=== PATIENT | female | born 1965 | race Caucasian/White ===

== ENCOUNTER 2016-11-22 13:54 | Emergency (ER) | payer MEDICAID, OTHER ==
[2016-11-22 14:15] VITALS: BP 124/85
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
--- NOTE | 2016-11-22 16:50 | XRAY Preliminary Report ---
Exam: XR Knee 3 View LT IMPRESSION: 1. Small to moderate joint effusion. 2. No acute fracture. 3. Degenerative disease of the lateral greater than medial compartment of mild severity. [facility] SITE ID: [id number]
--- NOTE | 2016-11-22 16:52 | XRAY Preliminary Report ---
Exam: XR Foot 3 View RT IMPRESSION: Previous first toe surgery and degenerative disease of the first metatarsal-phalangeal ledy int. [facility] SITE ID: [id number]
--- NOTE | 2016-11-22 16:53 | XRAY Report ---
EXAM: LEFT KNEE RADIOGRAPHY EXAM DATE: 11/22/2016 03:22 PM. CLINICAL HISTORY: Left knee pain. COMPARISON: None. TECHNIQUE: 3 views. FINDINGS: Bones: There is mild sclerosis and spurring of the lateral tibial plateau and the medial and lateral femoral condyle. No evidence of cortical step-off or acute fracture. Joints: There is a small to moderate suprapatellar joint effusion. Soft Tissues: Normal. No soft tissue swelling. IMPRESSION: 1. Small to moderate joint effusion. 2. No acute fracture. 3. Degenerative disease of the lateral greater than medial compartment of mild severity. [facility] Referring Provider Line: [phone] SITE ID: [id number]
--- NOTE | 2016-11-22 16:55 | XRAY Report ---
EXAM: RIGHT FOOT RADIOGRAPHY EXAM DATE: 11/22/2016 03:21 PM. CLINICAL HISTORY: Right foot injury. COMPARISON: None. TECHNIQUE: 3 views. FINDINGS: Bones: There are findings of osteotomy and surgery of the distal first metatarsal and first proximal phalanx. No acute fracture. Joints: There is joint space narrowing of the first metatarsal-phalangeal joint. No subluxation or di slocation. Soft Tissues: There is linear soft tissue calcification over the dorsal midfoot. IMPRESSION: Previous first toe surgery and degenerative disease of the first metatarsal-phalangeal ledy int. [facility] Referring Provider Line: [phone] SITE ID: [id number]
== END 2016-11-22 17:56 | disposition home or self-care (01) ==
LOC: ED 13:54
DX: S93.601A Unspecified sprain of right foot, initial encounter (principal); M25.562 Pain in left knee; W22.09XA Striking against other stationary object, initial encounter; Z98.890 Other specified postprocedural states; F17.200 Nicotine dependence, unspecified, uncomplicated
CPT/HCPCS: 99281; 99283

== ENCOUNTER 2017-01-25 12:18 | Emergency (ER) | payer MEDICAID ==
[2017-01-25] MEDS ORDERED: CYCLOBENZAPRINE 10 MG TABLET PO STA (13:37)
--- NOTE | 2017-01-25 13:39 | ED Physician Documentation ---
PD HPI Fall - Stated complaint Stated Complaint: L KNEE INJURY,FALL - Chief complaint Chief Complaint: Back Pain - History obtained from History obtained from: Patient - History of Present Illness Mechanism of injury: Tripped (states her knee gave out on her, states this is a chronic issue) Fall distance: Standing position Where injury occurred: Home Timing - onset: Last night Injury(ies) location: Face (R zygoma), Neck, Back, Left Lower Extremity (knee) Pain level max: 7 Pain level now: 7 Quality of pain: Pain, Aching, Dull Associated symptoms: No: LOC, AMS, Amnesia, Seizures, Ear drainage, Nasal drainage, Neck pain, Weakness, Paresthesias, Dyspnea, Nausea / vomiting, Hematemesis, Abdominal distension Symptoms improve with: Rest Worsens with: Movement, Palpation Contributing factors: No: Anticoagulated, Intoxicated Recently seen: Not recently seen Review of Systems Constitutional: denies: Fever, Chills Cardiac: denies: Chest pain / pressure Respiratory: denies: Cough Skin: denies: Rash Musculoskeletal: denies: Neck pain, Back pain Neurologic: denies: Focal weakness, Numbness, Headache PD PAST MEDICAL HISTORY - Past Medical History Past Medical History: Yes Endocrine/Autoimmune: None Musculoskeletal: Other (knee pain) - Past Surgical History Past Surgical History: Yes General: Appendectomy 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 - 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 Medications Home Medications: Ambulatory Orders Medication Instructions Recorded Confirmed Cyclobenzaprine [Flexeril] 10 mg PO TID PRN #20 tablet 01/25/17 Meloxicam [Mobic] 7.5 mg PO BID PRN #20 tablet 01/25/17 - Allergies Allergies/Adverse Reactions: Allergies Allergy/AdvReac Type Severity Reaction Status Date / Time codeine Allergy Unknown Verified 11/22/16 14:11 - Social History Does the pt smoke?: Yes Smoking Status: Current every day smoker Does the pt drink ETOH?: Yes Does the pt have substance abuse?: No - Immunizations Immunizations are current?: Yes - POLST Patient has POLST: No PD ED PE NORMAL - Vitals Vital signs reviewed: Yes - General General: Alert and oriented X 3, No acute distress, Well developed/nourished - HEENT HEENT: Atraumatic, PERRL, Ears normal, Moist mucous membranes, Pharynx benign - Neck Neck: Supple, no meningeal sign, No bony TTP - Cardiac Cardiac: RRR - Respiratory Respiratory: No respiratory distress, Clear bilaterally - Abdomen Abdomen: Soft, Non tender - Back Back: No spinal TTP - Extremities Extremities: Other (L knee - ACL, MCL, PCL, LCL intact. Negative Triny and Delio test. No joint effusion) - Neuro Neuro: Alert and oriented X 3 - Psych Psych: Normal mood, Normal affect Results - Vitals Vitals: Vital Signs - 24 hr 01/25/17 01/25/17 12:24 13:46 Temperature 36.3 C L 36.6 C Heart Rate 89 81 Respiratory 21 Rate Blood Pressure 130/84 H 137/70 H O2 Saturation 100 99 Oxygen O2 Source Room air PD MEDICAL DECISION MAKING - ED course Complexity details: reviewed old records, considered differential, d/w patient ED course: Patient is a 51-year-old female who presents to the emergency department after her left knee "gave out on her". This is a chronic ongoing condition for her for which she does have a brace. She may benefit from a more supportive knee brace after seeing her primary care provider and/or orthopedics. She also states that her doctor is no longer prescribing her Vicodin for her, I do not feel that narcotics are warranted for this condition at this time. Patient is comfortable with this plan. Will prescribe muscle relaxants for her disease appear to be soft tissue injuries. No bony tenderness over the neck or back. Patient is ambulating well in the emergency department. Patient counseled regarding signs and symptoms for which I believe and urgent re-evaluation would be necessary. Patient with good understanding of and agreement to plan and is comfortable going home at this time This document was made in part using voice recognition software. While efforts are made to proofread this document, sound alike and grammatical errors may occur. Departure - Departure Disposition: 01 Home, Self Care Clinical Impression: Back strain Qualifiers: Encounter type: initial encounter Qualified Code(s): S39.012A - Strain of muscle, fascia and tendon of lower back, initial encounter Knee strain Qualifiers: Encounter type: initial encounter Laterality: left Qualified Code(s): S86.912A - Strain of unspecified muscle(s) and tendon(s) at lower leg level, left leg, initial encounter Condition: Good Instructions: ED Sprain Strain Lumbar, ED Sprain Knee Follow-Up: your,doctor in 1 week [Other] Prescriptions: Cyclobenzaprine [Flexeril] 10 mg PO TID PRN #20 tablet PRN Reason: Spasms Meloxicam [Mobic] 7.5 mg PO BID PRN #20 tablet PRN Reason: pain Comments: Return if you worsen. This should improve over the next few days. You should follow up with your doctor/orthopedics about a brace for your knee. Discharge Date/Time: 01/25/17 13:48
[2017-01-25 13:47] VITALS: BP 137/70
[2017-01-25] MEDS ORDERED: CYCLOBENZAPRINE 10 MG TABLET PO ONE (13:48)
== END 2017-01-25 13:48 | disposition home or self-care (01) ==
LOC: ED 12:18
DX: S86.912A Strain of unspecified muscle(s) and tendon(s) at lower leg level, left leg, initial encounter (principal); S39.012A Strain of muscle, fascia and tendon of lower back, initial encounter; W01.0XXA Fall on same level from slipping, tripping and stumbling without subsequent striking against object, initial encounter; Y92.019 Unspecified place in single-family (private) house as the place of occurrence of the external cause; F17.200 Nicotine dependence, unspecified, uncomplicated
CPT/HCPCS: 99283; A9270

== ENCOUNTER 2017-10-03 14:35 | Outpatient (CLI) | payer MEDICAID ==
[2017-10-03 18:31] LABS: BASOPHILS # (AUTO) 0.1 10^3/uL (0.0-0.1); BASOPHILS % (AUTO) 0.9 %; EOSINOPHILS # (AUTO) 0.2 10^3/uL (0.0-0.7); EOSINOPHILS % (AUTO) 2.1 %; HGB - HEMOGLOBIN 14.2 g/dL (12.0-16.0); LYMPHOCYTES # (AUTO) 1.9 10^3/uL (1.5-3.5); LYMPHOCYTES % (AUTO) 21.5 %; MEAN CORPUSCULAR HEMOGLOBIN 32.6 pg (27.0-31.0); MEAN CORPUSCULAR HGB CONC 33.9 g/dL (32.0-36.0); MEAN CORPUSCULAR VOLUME 96.2 fL (81.0-99.0); MONOCYTES # (AUTO) 0.7 10^3/uL (0.0-1.0); MONOCYTES % (AUTO) 8.2 %; NEUTROPHILS # (AUTO) 5.9 10^3/uL (1.5-6.6); NEUTROPHILS % (AUTO) 67.3 %; PLT - PLATELET COUNT 295 10^3/uL (130-450); RED BLOOD COUNT 4.35 10^6/uL (4.20-5.40); RED CELL DISTRIBUTION WIDTH 12.6 % (12.0-15.0); WHITE BLOOD COUNT 8.8 x10^3/uL (4.8-10.8)
[2017-10-03 18:57] LABS: ALBUMIN 4.3 g/dL (3.2-5.5); ALBUMIN/GLOBULIN RATIO 1.3 (1.0-2.2); BILIRUBIN,TOTAL 0.6 mg/dL (0.2-1.0); CALCIUM 9.2 mg/dL (8.5-10.3); CREATININE 0.6 mg/dL (0.4-1.0); TOTAL PROTEIN 7.5 g/dL (6.7-8.2)
[2017-10-03 19:09] LABS: THYROID STIMULATING HORMONE 0.82 uIU/mL (0.34-5.60)
[2017-10-03 19:20] LABS: FOLATE 18.51 ng/mL (5.90 - >24.8)
== END 2017-10-03 23:59 | disposition home or self-care (01) ==
LOC: LAB.N 14:35
PROVIDERS: ATTEND Nurse Practitioner
DX: R53.83 Other fatigue (principal); E55.9 Vitamin D deficiency, unspecified
CPT/HCPCS: 36415; 80053; 82306; 82607; 82746; 84443; 85025

== ENCOUNTER 2017-11-19 15:48 | Outpatient (CLI) | payer MEDICAID ==
[2017-11-19 19:01] LABS: CALCIUM 9.4 mg/dL (8.5-10.3); CREATININE 0.6 mg/dL (0.4-1.0)
== END 2017-11-19 15:49 | disposition home or self-care (01) ==
LOC: LAB.N 15:48
PROVIDERS: ATTEND Nurse Practitioner
DX: E87.6 Hypokalemia (principal)
CPT/HCPCS: 36415; 80048

== ENCOUNTER 2017-12-01 15:55 | Outpatient (CLI) | payer MEDICAID | END 2017-12-01 15:56 | disposition home or self-care (01) | LOC: DI.N 15:55 | PROVIDERS: ATTEND Nurse Practitioner | DX: Z12.31 Encounter for screening mammogram for malignant neoplasm of breast (principal) | CPT/HCPCS: 77067 ==

== ENCOUNTER 2018-05-27 16:13 | Outpatient (CLI) | payer MEDICAID | END 2018-05-27 23:59 | disposition home or self-care (01) | LOC: RT.N 16:13 | PROVIDERS: ATTEND Nurse Practitioner | DX: R06.00 Dyspnea, unspecified (principal); R00.2 Palpitations | CPT/HCPCS: 93005 ==

== ENCOUNTER 2018-06-03 08:00 | Outpatient (CLI) | payer MEDICAID ==
[2018-06-03 19:12] LABS: BASOPHILS # (AUTO) 0.1 10^3/uL (0.0-0.1); EOSINOPHILS # (AUTO) 0.1 10^3/uL (0.0-0.7); EOSINOPHILS % (AUTO) 1.7 %; HGB - HEMOGLOBIN 15.1 g/dL (12.0-16.0); LYMPHOCYTES # (AUTO) 1.8 10^3/uL (1.5-3.5); LYMPHOCYTES % (AUTO) 23.2 %; MEAN CORPUSCULAR HEMOGLOBIN 32.5 pg (27.0-31.0); MEAN CORPUSCULAR HGB CONC 33.4 g/dL (32.0-36.0); MEAN CORPUSCULAR VOLUME 97.3 fL (81.0-99.0); MEAN PLATELET VOLUME 9.3 fL (7.9-10.8); MONOCYTES # (AUTO) 0.7 10^3/uL (0.0-1.0); MONOCYTES % (AUTO) 9.5 %; NEUTROPHILS # (AUTO) 4.9 10^3/uL (1.5-6.6); NEUTROPHILS % (AUTO) 64.6 %; PLT - PLATELET COUNT 251 10^3/uL (130-450); RED BLOOD COUNT 4.64 10^6/uL (4.20-5.40); RED CELL DISTRIBUTION WIDTH 12.5 % (12.0-15.0); WHITE BLOOD COUNT 7.6 x10^3/uL (4.8-10.8)
[2018-06-03 19:24] LABS: ALBUMIN 4.5 g/dL (3.2-5.5); ALBUMIN/GLOBULIN RATIO 1.4 (1.0-2.2); BILIRUBIN,TOTAL 0.7 mg/dL (0.2-1.0); CALCIUM 9.7 mg/dL (8.5-10.3); CREATININE 0.5 mg/dL (0.4-1.0); TOTAL PROTEIN 7.8 g/dL (6.7-8.2)
== END 2018-06-03 23:59 | disposition home or self-care (01) ==
LOC: LAB.N 08:00
PROVIDERS: ATTEND Nurse Practitioner
DX: R06.00 Dyspnea, unspecified (principal)
CPT/HCPCS: 36415; 80053; 85025

== ENCOUNTER 2018-06-14 13:22 | Outpatient (CLI) | payer MEDICAID | END 2018-06-14 13:23 | disposition home or self-care (01) | LOC: RT 13:22 | PROVIDERS: ATTEND Nurse Practitioner | DX: R06.09 Other forms of dyspnea (principal) | CPT/HCPCS: 94010; 94729 ==

== ENCOUNTER 2018-07-14 14:57 | Outpatient (CLI) | payer MEDICAID ==
--- NOTE | 2018-07-15 11:27 | CT Report ---
Reason: PRIMARY OSTEOARTHRITIS, RIGHT ANKLE AND FOOT Procedure Date: 07/14/2018 Accession Number: [id number] / [id number] Procedure: CT - LOWER EXTREMITY WO - RT CPT Code: FULL RESULT: EXAM: RIGHT FOOT CT WITHOUT CONTRAST EXAM DATE: 07/14/2018 03:16 PM. CLINICAL HISTORY: Right ankle and foot osteoarthritis. Fracture nonunion. COMPARISON: 11/22/2016 radiograph. TECHNIQUE: Thin-section axial images were acquired of the foot without contrast. Post-processing: Coronal and sagittal reformats. Other: None. In accordance with CT protocol optimization, one or more of the following dose reduction techniques were utilized for this exam: automated exposure control, adjustment of mA and/or KV based on patient size, or use of iterative reconstructive technique. FINDINGS: Bones: No fractures. Mild osteophyte formation is at the first metatarsal phalangeal joint and is accompanied by joint space narrowing. The patient has had plate and screw fixation at the first tarsometatarsal joint. The plate is broken just distal to the second screw. However, there is bony union at the fusion site. Although this is a nonweightbearing examination, the patient likely has hallux valgus and metatarsus primus varus. A bunionectomy has been performed. The patient has joint space narrowing, mild osteophyte formation, and periarticular cyst formation at the second and third tarsometatarsal joints. Musculature: Normal. No fatty atrophy. Other: No tendon entrapment. No soft tissue swelling. IMPRESSION: 1. 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 2. Prior bunion surgery. 3. Mild osteoarthritis of the first metatarsophalangeal and second and third tarsometatarsal joints. [facility]
== END 2018-07-14 14:58 | disposition home or self-care (01) ==
LOC: DI 14:57
PROVIDERS: ATTEND Podiatrist Foot & Ankle Surgery
DX: S92.901K Unspecified fracture of right foot, subsequent encounter for fracture with nonunion (principal); M19.071 Primary osteoarthritis, right ankle and foot; T85.848D Pain due to other internal prosthetic devices, implants and grafts, subsequent encounter

== ENCOUNTER 2019-02-14 14:54 | Emergency (ER) | payer MEDICAID ==
[2019-02-14 15:06] VITALS: BP 114/83
--- NOTE | 2019-02-14 15:43 | XRAY Report ---
Reason: cough/ chest congestion Procedure Date: 02/14/2019 Accession Number: [id number] / [id number] Procedure: XR - Chest 2 View X-Ray CPT Code: 61623 Final Report FULL RESULT: EXAM: CHEST RADIOGRAPHY EXAM DATE: 02/14/2019 03:14 PM. CLINICAL HISTORY: Cough/ chest congestion. COMPARISON: None available. TECHNIQUE: 2 views. FINDINGS: Heart size is normal. Calcified plaque in the thoracic aorta. No consolidation, pleural effusion, or pneumothorax. IMPRESSION: No acute cardiopulmonary findings. [facility]
[2019-02-14] MEDS ORDERED: BENZONATATE 100 MG CAPSULE PO STA (16:09)
[2019-02-14] MEDS ORDERED: predniSONE 20 MG TABLET PO STA (16:09)
--- NOTE | 2019-02-14 16:15 | ED Physician Documentation ---
PD HPI URI - Stated complaint Stated Complaint: CONGESTED, SHORT OF BREATH, COUGH - Chief complaint Chief Complaint: Resp - History obtained from History obtained from: Patient, Family - History of Present Illness Timing - onset: How many days ago (9) Timing duration: Days (9) Timing details: Gradual onset Pain level max: 5 Pain level now: 4 Associated symptoms: Nasal congestion, Rhinorrhea, Dry cough, Dyspnea (wheezing). 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 - Present Medications Home Medications: Ambulatory Orders Medication Instructions Recorded Confirmed Cyclobenzaprine [Flexeril] 10 mg PO TID PRN #20 tablet 01/25/17 Meloxicam [Mobic] 7.5 mg PO BID PRN #20 tablet 01/25/17 Albuterol Sulf [Ventolin Hfa 1 - 2 puffs INH Q4HR PRN #1 inhaler 02/14/19 Inhaler] Benzonatate [Tessalon Perle] 100 - 200 mg PO TID PRN #30 capsule 02/14/19 Meloxicam [Mobic] 15 mg PO DAILY PRN #20 tablet 02/14/19 predniSONE [Deltasone] 10 mg PO [id number] #42 tab 02/14/19 - Allergies Allergies/Adverse Reactions: Allergies Allergy/AdvReac Type Severity Reaction Status Date / Time codeine Allergy Unknown Verified 11/22/16 14:11 - Social History Does the pt smoke?: Yes Smoking Status: Current every day smoker Does the pt drink ETOH?: Yes Does the pt have substance abuse?: No - Immunizations Immunizations are current?: Yes - POLST Patient has POLST: No PD ED PE NORMAL - Vitals Vital signs reviewed: Yes - General General: Alert and oriented X 3, No acute distress, Well developed/nourished - HEENT HEENT: Ears normal, Moist mucous membranes, Pharynx benign - Neck Neck: No bruit - Cardiac Cardiac: RRR - Respiratory Respiratory: Other (Decreased breath sounds and diffuse wheezing bilaterally) - Abdomen Abdomen: Soft, Non tender, Non distended - Derm Derm: Warm and dry - Extremities Extremities: No edema - Neuro Neuro: Alert and oriented X 3 Results - Vitals Vitals: Vital Signs - 24 hr 02/14/19 02/14/19 15:03 16:21 Temperature 36.8 C Heart Rate 110 H 112 H Respiratory 14 16 Rate Blood Pressure 114/83 H O2 Saturation 96 Oxygen O2 Source Room air - Rads (name of study) Chest x-ray Radiology: Prelim report reviewed, EMP read contemporaneously, See rad report (acute cardiopulmonary findings. ) PD MEDICAL DECISION MAKING - ED course Complexity details: reviewed results, re-evaluated patient, considered differential, d/w patient ED course: 54-year-old female that appears to be a viral upper respiratory infection. Feels better after steroids and nebulizer treatment. No hypoxia. No respiratory distress. Will prescribe an inhaler and steroids for home. Patient counseled regarding signs and symptoms for which I believe and urgent re- evaluation would be necessary. Patient with good understanding of and agreement to plan and is comfortable going home at this time This document was made in part using voice recognition software. While efforts are made to proofread this document, sound alike and grammatical errors may occur. No pneumonia on chest x-ray Departure - Departure Disposition: 01 Home, Self Care Clinical Impression: Viral URI Condition: Good Instructions: ED URI Viral Follow-Up: your,doctor in 1 week [Other] Prescriptions: Albuterol Sulf [Ventolin Hfa Inhaler] 1 - 2 puffs INH Q4HR PRN #1 inhaler PRN Reason: Shortness Of Air/Wheezing Benzonatate [Tessalon Perle] 100 - 200 mg PO TID PRN #30 capsule PRN Reason: Cough Meloxicam [Mobic] 15 mg PO DAILY PRN #20 tablet PRN Reason: pain predniSONE [Deltasone] 10 mg PO [id number] #42 tab Comments: Return if you worsen. Follow up with your doctor for further care. Discharge Date/Time: 02/14/19 16:36
[2019-02-14] MEDS: IPRATROPIUM/ALBUTEROL 3 ML NEB INH STA (16:18)
== END 2019-02-14 16:36 | disposition home or self-care (01) ==
LOC: ED 14:54
DX: J06.9 Acute upper respiratory infection, unspecified (principal); F17.200 Nicotine dependence, unspecified, uncomplicated
CPT/HCPCS: 71046; 94640; 94664; 99284; A9270; J7512

== ENCOUNTER 2019-02-17 16:55 | Emergency (ER) | payer MEDICAID ==
--- NOTE | 2019-02-17 17:48 | XRAY Report ---
Reason: cough Procedure Date: 02/17/2019 Accession Number: [id number] / [id number] Procedure: XR - Chest 2 View X-Ray CPT Code: 75334 Final Report FULL RESULT: EXAM: CHEST RADIOGRAPHY EXAM DATE: 02/17/2019 05:15 PM. CLINICAL HISTORY: Cough. COMPARISON: CHEST 2 VIEW 02/14/2019 3:10 PM. TECHNIQUE: 2 views. FINDINGS: Lungs/Pleura: No focal opacities evident. No pleural effusion. No pneumothorax. Normal volumes. Mediastinum: Heart and mediastinal contours are unremarkable. Other: None. IMPRESSION: No acute cardiopulmonary process. [facility]
[2019-02-17 17:58] VITALS: BP 142/90
--- NOTE | 2019-02-17 18:03 | ED Physician Documentation ---
PD HPI URI - Stated complaint Stated Complaint: RT CHEST PX - Chief complaint Chief Complaint: Resp - History obtained from History obtained from: Patient - History of Present Illness Timing - onset: How many weeks ago (2) Timing duration: Weeks (2) Timing details: Gradual onset, Still present (she has had cough and congestion with some sputum production for 2 weeks, with pain in sternal area after coughing. The chest pain has worsened, and hurts with breathing and cough. No rash. No fever.) Associated symptoms: Nasal congestion, Productive cough, Chest pain. No: Fever, Hemoptysis, Dyspnea, NVD Improves by: No: Medication (ibuprofen and tylenol, Mucinex.) Worsened by: Breathing, Other (coughing) Similar symptoms before: Has not had sx before Recently seen: Not recently seen Review of Systems Constitutional: reports: Myalgias. denies: Fever, Chills Nose: reports: Congestion Throat: denies: Sore throat Cardiac: reports: Chest pain / pressure. denies: Palpitations, Pedal edema, Calf pain Respiratory: reports: Dyspnea, Cough. 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 - Present Medications Home Medications: Ambulatory Orders Medication Instructions Recorded Confirmed Cyclobenzaprine [Flexeril] 10 mg PO TID PRN #20 tablet 01/25/17 Meloxicam [Mobic] 7.5 mg PO BID PRN #20 tablet 01/25/17 Albuterol Sulf [Ventolin Hfa 1 - 2 puffs INH Q4HR PRN #1 inhaler 02/14/19 Inhaler] Benzonatate [Tessalon Perle] 100 - 200 mg PO TID PRN #30 capsule 02/14/19 Meloxicam [Mobic] 15 mg PO DAILY PRN #20 tablet 02/14/19 predniSONE [Deltasone] 10 mg PO [id number] #42 tab 02/14/19 Benzonatate [Tessalon Perle] 100 - 200 mg PO TID PRN #30 capsule 02/17/19 Doxycycline Monohydrate 100 mg PO BID #14 tablet 02/17/19 Oxycodone HCl/Acetaminophen 1 - 2 each PO Q6H PRN #18 tablet 02/17/19 [Percocet 5-325 mg Tablet] Tizanidine HCl 4 mg PO TID PRN #20 capsule 02/17/19 - Allergies Allergies/Adverse Reactions: Allergies Allergy/AdvReac Type Severity Reaction Status Date / Time codeine Allergy Unknown Verified 02/17/19 17:00 - Social History Does the pt smoke?: Yes Smoking Status: Current every day smoker Does the pt drink ETOH?: Yes Does the pt have substance abuse?: No - Immunizations Immunizations are current?: Yes - POLST Patient has POLST: No PD ED PE NORMAL - Vitals Vital signs reviewed: Yes - General General: Alert and oriented X 3, Well developed/nourished, Other (appears in pain sternal area with coughing. ) - HEENT HEENT: Pharynx benign - Neck Neck: Supple, no meningeal sign, No adenopathy - Cardiac Cardiac: No murmur. No: RRR (regular but tachy initially, improved in ED. ) - Respiratory Respiratory: Clear bilaterally - Abdomen Abdomen: Normal bowel sounds, Soft, Non tender, Non distended - Derm Derm: Normal color, Warm and dry, No rash - Extremities Extremities: No edema, No calf tenderness / cord - Neuro Neuro: Alert and oriented X 3, No motor deficit, Normal speech Results - Vitals Vitals: Oxygen O2 Source Room air - Rads (name of study) chest xray Radiology: Prelim report reviewed (no infiltrates nor acute proces.), See rad report PD MEDICAL DECISION MAKING - ED course Complexity details: reviewed results, considered differential (URI/chest ccold but longer duration, and worsening pain. Consider some bacterial now. Seems musculoskeletal inflammation/strain. ), d/w patient Departure - Departure Disposition: 01 Home, Self Care Clinical Impression: Pleuritic chest pain Upper respiratory tract infection Qualifiers: URI type: unspecified URI Qualified Code(s): J06.9 - Acute upper respiratory infection, unspecified Condition: Stable Record reviewed to determine appropriate education?: Yes Instructions: ED Chest Pain Pleurisy Prescriptions: Benzonatate [Tessalon Perle] 100 - 200 mg PO TID PRN #30 capsule PRN Reason: Cough Doxycycline Monohydrate 100 mg PO BID #14 tablet Oxycodone HCl/Acetaminophen [Percocet 5-325 mg Tablet] 1 - 2 each PO Q6H PRN #18 tablet PRN Reason: pain Tizanidine HCl 4 mg PO TID PRN #20 capsule PRN Reason: Spasms Comments: Continue the sleep prescribed. I think this will be helpful. You can use some nonsteroidal anti-inflammatories such as ibuprofen or naproxen as well to help with the pain. Add Tylenol or pain medicine if needed. Add Tessalon if needed for cough suppression. You can use guaifenesin as well. Doxycycline antibiotic for possible bacterial cause of the cough. Your chest x-ray is clear without any signs of pneumonia nor any fluid around the lungs. Sounds like your symptoms are likely some inflammation of the surface of the lung or musculoskeletal in that area. I presume this will improve with the anti-inflammatories and as you are coughing decreases. Recheck if not improved well over the next few days. Discharge Date/Time: 02/17/19 18:50
[2019-02-17] MEDS ORDERED: BENZONATATE 100 MG CAPSULE PO STA (18:28)
[2019-02-17] MEDS ORDERED: oxyCODONE 5 MG TABLET PO STA (18:28)
[2019-02-17] MEDS ORDERED: CHERRY SYRUP 10 ML UDC PO ONE (18:30)
[2019-02-17] MEDS ORDERED: METHOCARBAMOL 500 MG TABLET PO STA (18:30)
[2019-02-17] MEDS ORDERED: DEXAMETHASONE 10 MG/ML VIAL PO STA (18:30)
[2019-02-17] MEDS ORDERED: DOXYCYCLINE 100 MG TABLET PO STA (18:36)
== END 2019-02-17 18:50 | disposition home or self-care (01) ==
LOC: ED 16:55
DX: J06.9 Acute upper respiratory infection, unspecified (principal); R07.81 Pleurodynia; F17.200 Nicotine dependence, unspecified, uncomplicated
CPT/HCPCS: 71046; 99284; A9270

== ENCOUNTER 2019-02-24 12:11 | Outpatient (CLI) | payer MEDICAID ==
[2019-02-24 18:57] LABS: BASOPHILS # (AUTO) 0.1 10^3/uL (0.0-0.1); BASOPHILS % (AUTO) 0.6 %; EOSINOPHILS # (AUTO) 0.2 10^3/uL (0.0-0.7); EOSINOPHILS % (AUTO) 1.8 %; HGB - HEMOGLOBIN 13.5 g/dL (12.0-16.0); LYMPHOCYTES # (AUTO) 1.5 10^3/uL (1.5-3.5); LYMPHOCYTES % (AUTO) 16.7 %; MEAN CORPUSCULAR HEMOGLOBIN 32.2 pg (27.0-31.0); MEAN CORPUSCULAR HGB CONC 32.3 g/dL (32.0-36.0); MEAN CORPUSCULAR VOLUME 99.8 fL (81.0-99.0); MEAN PLATELET VOLUME 10.3 fL (7.9-10.8); MONOCYTES # (AUTO) 0.7 10^3/uL (0.0-1.0); MONOCYTES % (AUTO) 7.9 %; NEUTROPHILS # (AUTO) 6.5 10^3/uL (1.5-6.6); NEUTROPHILS % (AUTO) 71.8 %; PLT - PLATELET COUNT 307 10^3/uL (130-450); RED BLOOD COUNT 4.19 10^6/uL (4.20-5.40); RED CELL DISTRIBUTION WIDTH 11.9 % (12.0-15.0)
[2019-02-24 19:21] LABS: ALBUMIN/GLOBULIN RATIO 1.3 (1.0-2.2); ALKALINE PHOSPHATASE 106 IU/L (42-121); ALT ALANINE AMINOTRANSFERASE 118 IU/L (10-60); AST ASPARTATE AMINOTRANSFERASE 79 IU/L (10-42); BILIRUBIN,TOTAL 0.4 mg/dL (0.2-1.0); BUN - BLOOD UREA NITROGEN 13 mg/dL (6-20); CALCIUM 9.3 mg/dL (8.5-10.3); CARBON DIOXIDE - CO2 25 mmol/L (21-32); CHLORIDE 100 mmol/L (101-111); CHOL/HDL RATIO 4.4 (<4.4); CHOLESTEROL 218 mg/dL; CREATININE 0.6 mg/dL (0.4-1.0); GFR - MDRD 105 (>89); GLUCOSE 137 mg/dL (70-100); HDL CHOLESTEROL 50 mg/dL; LDL CHOLESTEROL,CALCULATED 122 mg/dL; LDL/HDL RATIO 2.4 (<4.4); SODIUM 136 mmol/L (135-145); TOTAL PROTEIN 7.2 g/dL (6.7-8.2); VLDL CHOLESTEROL 46 mg/dL
== END 2019-02-24 23:59 | disposition home or self-care (01) ==
LOC: LAB.N 12:11
PROVIDERS: ATTEND Nurse Practitioner Gerontology
DX: E53.8 Deficiency of other specified B group vitamins (principal); R63.5 Abnormal weight gain; R61 Generalized hyperhidrosis; E55.9 Vitamin D deficiency, unspecified; R53.83 Other fatigue; B18.2 Chronic viral hepatitis C
CPT/HCPCS: 36415; 80053; 80061; 82306; 82607; 82670; 83721; 84443; 85025

== ENCOUNTER 2019-04-02 14:18 | Outpatient (CLI) | payer MEDICAID ==
[2019-04-02 18:43] LABS: ALBUMIN 4.2 g/dL (3.2-5.5); BILIRUBIN,DIRECT 0.1 mg/dL (0.1-0.5); BILIRUBIN,TOTAL 0.5 mg/dL (0.2-1.0); TOTAL PROTEIN 7.1 g/dL (6.7-8.2)
[2019-04-03 12:05] LABS: HEPATITIS B SURFACE ANTIGEN NON-REACTIVE (NON-REACTIVE)
== END 2019-04-02 23:59 ==
LOC: LAB.N 14:18
PROVIDERS: ATTEND Nurse Practitioner Gerontology
DX: R94.5 Abnormal results of liver function studies (principal)
CPT/HCPCS: 36415; 80076; 81599; 86317; 86704; 86709; 87340

== ENCOUNTER 2019-12-26 03:05 | Emergency (ER) | payer MEDICAID ==
--- NOTE | 2019-12-26 03:33 | ED Physician Documentation ---
History of Present Illness - Stated complaint Stated Complaint: N/V - Chief complaint Chief Complaint: General - History obtained from History obtained from: Patient - History of Present Illness Timing: How many weeks ago (1) Pain level max: 0 Pain level now: 0 Improved by: nothing Worsened by: PO intake - Additonal information Additional information: c/o 1 week of nausea, vomiting, generalized malaise, mild generalized headache. She says symptoms are improving and she says she is only here in ED because she says she won't be allowed back to work until she has a negative COVID test. She says she came in at this hour because she was awake anyway and figured it wouldn't be as busy as during the day. Review of Systems Constitutional: reports: Fatigue (improving), Weight Loss. denies: Fever, Chills, Myalgias, Sweats Cardiac: denies: Chest pain / pressure Respiratory: denies: Dyspnea, Cough GI: reports: Nausea, Vomiting. 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 - Present Medications Home Medications: Ambulatory Orders Medication Instructions Recorded Confirmed Cyclobenzaprine [Flexeril] 10 mg PO TID PRN #20 tablet 01/25/17 Meloxicam [Mobic] 7.5 mg PO BID PRN #20 tablet 01/25/17 Albuterol Sulf [Ventolin Hfa 1 - 2 puffs INH Q4HR PRN #1 inhaler 02/14/19 Inhaler] Benzonatate [Tessalon Perle] 100 - 200 mg PO TID PRN #30 capsule 02/14/19 Meloxicam [Mobic] 15 mg PO DAILY PRN #20 tablet 02/14/19 predniSONE [Deltasone] 10 mg PO [id number] #42 tab 02/14/19 Benzonatate [Tessalon Perle] 100 - 200 mg PO TID PRN #30 capsule 02/17/19 Doxycycline Monohydrate 100 mg PO BID #14 tablet 02/17/19 Oxycodone HCl/Acetaminophen 1 - 2 each PO Q6H PRN #18 tablet 02/17/19 [Percocet 5-325 mg Tablet] Tizanidine HCl 4 mg PO TID PRN #20 capsule 02/17/19 Ondansetron [Ondansetron Odt] 4 mg PO Q6HR PRN #10 tab.rapdis 12/26/19 - Allergies Allergies/Adverse Reactions: Allergies Allergy/AdvReac Type Severity Reaction Status Date / Time codeine Allergy Unknown Verified 12/26/19 03:17 - Social History Does the pt smoke?: Yes Smoking Status: Current every day smoker Does the pt drink ETOH?: Yes Does the pt have substance abuse?: No - Immunizations Immunizations are current?: Yes - POLST Patient has POLST: No PD ED PE NORMAL - Vitals Vital signs reviewed: Yes - General General: Alert and oriented X 3, No acute distress, Well developed/nourished - HEENT HEENT: Moist mucous membranes - Neck Neck: Supple, no meningeal sign - Cardiac Cardiac: RRR, No murmur - Respiratory Respiratory: No respiratory distress, Clear bilaterally - Abdomen Abdomen: Soft, Non tender Results - Vitals Vitals: Vital Signs - 24 hr 12/26/19 12/26/19 03:10 03:50 Temperature 36.7 C 36.6 C Heart Rate 110 H 90 Respiratory 18 18 Rate Blood Pressure 136/76 H 133/76 H O2 Saturation 95 98 Oxygen O2 Source Room air PD MEDICAL DECISION MAKING - ED course Complexity details: considered differential, d/w patient ED course: Patient says her symptoms have been improving and she does not want any testing nor treatment at this time except requesting COVID testing to clear her to return to work. She has a benign exam. She describes having difficulty tolerating most any PO and thus she at least was agreeable to rx for zofran with TL dose prior to discharge. I explained that the COVID test takes approximately 2 days for result. Departure - Departure Disposition: 01 Home, Self Care Clinical Impression: Nausea & vomiting Condition: Good Instructions: ED Nausea Vomiting, COVID-19 [facility], COVID-19 [facility] Statement Prescriptions: Ondansetron [Ondansetron Odt] 4 mg PO Q6HR PRN #10 tab.rapdis PRN Reason: Nausea / Vomiting Discharge Date/Time: 12/26/19 03:55
[2019-12-26] MEDS ORDERED: ONDANSETRON ODT 4 MG TABLET TL STA (03:43)
[2019-12-26 04:15] VITALS: BP 133/76
== END 2019-12-26 03:55 | disposition home or self-care (01) ==
LOC: ED 03:05
DX: R11.2 Nausea with vomiting, unspecified (principal); R51 Headache; R53.81 Other malaise; Z20.828 Contact with and (suspected) exposure to other viral communicable diseases; F17.200 Nicotine dependence, unspecified, uncomplicated
CPT/HCPCS: 87635; 99283; Q0162

== ENCOUNTER 2020-05-29 14:37 | Outpatient (CLI) | payer MEDICAID ==
--- NOTE | 2020-05-30 12:30 | Mammography Report ---
BILATERAL DIGITAL SCREENING MAMMOGRAM 3D/2D: 05/29/2020 CLINICAL: Family history of breast cancer. Routine screening. Comparison is made to exams dated: 12/01/2017 mammogram, 01/29/2010 mammogram, 01/29/2010 ultrasound biopsy, 01/18/2010 ultrasound, 01/18/2010 mammogram, and 01/04/2010 mammogram - [facility]. There are scattered fibroglandular elements in both breasts. No significant masses, calcifications, or other findings are seen in either breast. There has been no significant interval change. IMPRESSION: NEGATIVE There is no mammographic evidence of malignancy. A 1 year screening mammogram is recommended. This exam was interpreted at Station ID: [id number]. NOTE: For mammograms, a report in lay terms will be sent to the patient. Approximately 15% of breast malignancies will not be visualized mammographically. In the management of a palpable breast mass, a negative mammogram must not discourage biopsy of a clinically suspicious lesion. Electronically Signed By: Levi Jones M.D., jr/benjamín:05/29/2020 15:15:48 ACR BI-RADS Category 1: Negative 3341F PARENCHYMAL PATTERN: (A) - The breast(s) demonstrate(s) scattered fibroglandular densities. BI-RADS CATEGORY: (1) - 1 RECOMMENDATION: (ANNUAL) - Recommend routine annual screening mammography. [id number] 1 year screening LATERALITY: (B)
== END 2020-05-29 14:38 | disposition home or self-care (01) ==
LOC: DI.N 14:37
DX: Z12.31 Encounter for screening mammogram for malignant neoplasm of breast (principal); Z80.3 Family history of malignant neoplasm of breast

== ENCOUNTER 2022-11-28 15:25 | Outpatient (CLI) | payer MEDICAID ==
[2022-11-28 17:51] LABS: BASOPHILS # (AUTO) 0.2 10^3/uL (0.0-0.1); BASOPHILS % (AUTO) 1.8 %; EOSINOPHILS # (AUTO) 0.2 10^3/uL (0.0-0.7); EOSINOPHILS % (AUTO) 1.8 %; HCT - HEMATOCRIT 31.6 % (37.0-47.0); HGB - HEMOGLOBIN 9.2 g/dL (12.0-16.0); LYMPHOCYTES # (AUTO) 2.4 10^3/uL (1.5-3.5); LYMPHOCYTES % (AUTO) 25.8 %; MEAN CORPUSCULAR HEMOGLOBIN 23.5 pg (27.0-31.0); MEAN CORPUSCULAR HGB CONC 29.1 g/dL (32.0-36.0); MEAN CORPUSCULAR VOLUME 80.6 fL (81.0-99.0); MEAN PLATELET VOLUME 10.1 fL (7.9-10.8); MONOCYTES # (AUTO) 0.7 10^3/uL (0.0-1.0); MONOCYTES % (AUTO) 7.7 %; NEUTROPHILS # (AUTO) 5.8 10^3/uL (1.5-6.6); NEUTROPHILS % (AUTO) 62.3 %; PLT - PLATELET COUNT 517 10^3/uL (130-450); RED BLOOD COUNT 3.92 10^6/uL (4.20-5.40); RED CELL DISTRIBUTION WIDTH 15.6 % (12.0-15.0); WHITE BLOOD COUNT 9.4 x10^3/uL (4.8-10.8)
[2022-11-28 18:12] LABS: % IRON SATURATION 5 % (20-50); ALBUMIN 4.1 g/dL (3.2-5.5); ALBUMIN/GLOBULIN RATIO 1.6 (1.0-2.2); ALKALINE PHOSPHATASE 83 IU/L (42-121); ALT ALANINE AMINOTRANSFERASE 12 IU/L (10-60); AST ASPARTATE AMINOTRANSFERASE 23 IU/L (10-42); BILIRUBIN,TOTAL 0.4 mg/dL (0.2-1.0); BUN - BLOOD UREA NITROGEN 15 mg/dL (6-20); CALCIUM 9.2 mg/dL (8.5-10.3); CARBON DIOXIDE - CO2 31 mmol/L (21-32); CHLORIDE 101 mmol/L (101-111); CREATININE 1.1 mg/dL (0.6-1.3); GFR - MDRD 52 (>89); GLUCOSE 113 mg/dL (74-104); IRON 29 ug/dL (50-212); POTASSIUM 3.4 mmol/L (3.5-4.5); SODIUM 137 mmol/L (135-145); TOTAL IRON BINDING CAPACITY 557 ug/dL (250-450); TOTAL PROTEIN 6.7 g/dL (6.4-8.9); TRANSFERRIN 398 mg/dL (203-362); TRIGLYCERIDES 288 mg/dL (48-352)
[2022-11-28 18:13] LABS: CHOL/HDL RATIO 5.5 (<4.4); CHOLESTEROL 275 mg/dL; HDL CHOLESTEROL 50 mg/dL; LDL CHOLESTEROL,CALCULATED 167 mg/dL; LDL/HDL RATIO 3.3 (<4.4); VLDL CHOLESTEROL 58 mg/dL
[2022-11-28 19:01] LABS: FERRITIN 2.9 ng/mL (11.0-306.8)
[2022-11-28 19:20] LABS: THYROID STIMULATING HORMONE 65.77 uIU/mL (0.34-5.60)
[2022-11-28 21:01] LABS: ESTIMATED AVERAGE GLUCOSE 117 mg/dL (70-100); HEMOGLOBIN A1c% 5.7 % (4.27-6.07)
== END 2022-11-28 15:26 | disposition home or self-care (01) ==
LOC: LAB.N 15:25
PROVIDERS: ATTEND Nurse Practitioner Family
DX: R03.0 Elevated blood-pressure reading, without diagnosis of hypertension (principal); E66.9 Obesity, unspecified; G62.9 Polyneuropathy, unspecified; F17.210 Nicotine dependence, cigarettes, uncomplicated; E53.8 Deficiency of other specified B group vitamins; R53.83 Other fatigue; E55.9 Vitamin D deficiency, unspecified; M19.90 Unspecified osteoarthritis, unspecified site
CPT/HCPCS: 36415; 80053; 80061; 82607; 82728; 82746; 83036; 83540; 83721; 84439; 84443; 84466; 85025

== ENCOUNTER 2023-02-10 09:49 | Day surgery (SDC) | payer MEDICAID ==
[2023-02-10] MEDS ORDERED: LACTATED RINGERS 1,000 ML IV ONE (09:59)
[2023-02-10] MEDS ORDERED: PROPOFOL 500 MG/50 ML 0 MG/0 ML VIAL ONE (11:03)
--- NOTE | 2023-02-10 11:34 | ANESTHESIA ---
Pre-Anesthesia VS, & Labs - Diagnosis family hx of colon CA - Procedure colonoscopy Vital Signs: Temp Pulse Resp BP Pulse Ox O2 Flow Rate 36.3 C L 94 17 132/83 H 95 02/10/23 09:59 02/10/23 09:59 02/10/23 09:59 02/10/23 09:59 02/10/23 09:59 Height: 5 ft 7 in Weight (kg): 92.4 kg Body Mass Index: 31.8 BMI Classification: Obese - NPO >8 hours - Is Patient ?: No Home Medications and Allergies Home Medications: Ambulatory Orders Atorvastatin [Lipitor] 10 mg PO DAILY 02/10/23 Levothyroxine [Synthroid] 25 mcg PO QDAC 02/10/23 Atorvastatin [Lipitor] 10 mg PO DAILY 02/10/23 Levothyroxine [Synthroid] 25 mcg PO QDAC 02/10/23 Allergies/Adverse Reactions: Allergies Allergy/AdvReac Type Severity Reaction Status Date / Time codeine Allergy Unknown Verified 12/26/19 03:17 Anes History & Medical History - Anesthetic History Anesthesia Complications: reports: No previous complications Family history of Anesthesia Complications: Denies Family history of Malignant Hyperthermia: Denies - Medical History Cardiovascular: reports: High cholesterol Pulmonary: reports: None Gastrointestinal: reports: None Urinary: reports: None Neuro: reports: None Musculoskeletal: reports: Osteoarthritis, Fibromyalgia Endocrine/Autoimmune: reports: HyPOthyroidism Skin: reports: None Smoking Status: Current every day smoker - Surgical History General: reports: Appendectomy Gynecologic: reports: section Orthopedic: reports: Other Exam General: Alert, Oriented x3, Cooperative Dental: WNL Mouth Openin Fingerbreadth Mallampati classification: I Respiratory: Lungs clear Cardiovascular: Regular rate Plan Anesthesia Type: General, Total IV Consent for Procedure(s) Verified and Reviewed: Yes Code Status: Attempt Resuscitation ASA classification: 2-Mild systemic disease Is this case an emergency?: No
--- NOTE | 2023-02-10 11:52 | HISTORY & PHYSICAL EXAMINATION ---
Chief Complaint - Chief Complaint Chief Complaint: here for colonoscopy History of Present Illness - History Obtained From Records Reviewed: yes History obtained from: pt Exam Limitations: none - History of Present Illness HPI Comment/Other: personal history adenomatous polyp and family history mother colon ca age 38. 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 Patient has POLST: No Meds/Allgy - Home Medications Home Medications: Ambulatory Orders Medication Instructions Recorded Confirmed Atorvastatin [Lipitor] 10 mg PO DAILY 02/10/23 02/10/23 Levothyroxine [Synthroid] 25 mcg PO QDAC 02/10/23 02/10/23 - Allergies Allergies/Adverse Reactions: Allergies Allergy/AdvReac Type Severity Reaction Status Date / Time codeine Allergy Unknown Verified 12/26/19 03:17 Review of Systems - Other Findings Other Findings: 10 pt ros as above otherwise unremarkable Exam - Vital Signs Reviewed Vital Signs: Yes Vital Signs: Vital Signs x48h Temp Pulse Resp BP Pulse Ox 02/10/23 09:59 36.3 C L 94 17 132/83 H 95 - Physical Exam General Appearance: positive: No acute distress, Alert Eyes Bilateral: positive: PERRL, EOMI, No scleral icterus ENT: positive: No signs of dehydration Neck: positive: No JVD, Trachea midline Respiratory: positive: No respiratory distress Cardiovascular: positive: Regular rate & rhythm Abdomen: positive: No distention Neurologic/Psychiatric: positive: Oriented x3 Conclusion/Plan - Problem List (1) History of adenomatous polyp of colon Conclusion/Plan: plan colonoscopy. parq held and consent obtained
[2023-02-10] MEDS ORDERED: PROPOFOL 200 MG/20 ML VIAL IVP ONE ×2 (12:40→13:39)
[2023-02-10] MEDS ORDERED: LACTATED RINGERS 400 ML IV ONE (12:52)
[2023-02-10 13:17] VITALS: BP 116/63; O2SAT 98
--- NOTE | 2023-02-10 15:51 | ANESTHESIA POST OP EVALUATION ---
Anesthesia Post Eval - Post Anesthesia Eval Vitals: Last Vital Signs Temp 36.2 C L 02/10/23 13:15 Pulse 90 02/10/23 13:15 Resp 18 02/10/23 13:15 BP 116/63 02/10/23 13:15 Pulse Ox 98 02/10/23 13:15 O2 Flow Rate CV Function Including HR & BP: Stable Pain Control: Satisfactory Nausea & Vomiting: Negative Mental Status: Baseline Respiratory Status: Airway Patent Hydration Status: Satisfactory Anesthesia Complications: None
== END 2023-02-10 09:50 | disposition home or self-care (01) ==
LOC: SDS 09:49
PROVIDERS: ATTEND Surgery
PROC: 0DBH8ZZ Excision of Cecum, Via Natural or Artificial Opening Endoscopic (ICD-10-PCS; principal; 2023-02-10 11:15)
DX: Z12.11 Encounter for screening for malignant neoplasm of colon (principal); D12.0 Benign neoplasm of cecum; K57.30 Diverticulosis of large intestine without perforation or abscess without bleeding; E66.9 Obesity, unspecified; Z68.31 Body mass index [BMI] 31.0-31.9, adult; F17.200 Nicotine dependence, unspecified, uncomplicated; Z80.0 Family history of malignant neoplasm of digestive organs
CPT/HCPCS: 45385; J7120

== ENCOUNTER 2023-03-20 14:31 | Outpatient (CLI) | payer MEDICAID ==
[2023-03-20 17:59] LABS: BASOPHILS # (AUTO) 0.1 10^3/uL (0.0-0.1); BASOPHILS % (AUTO) 1.2 %; EOSINOPHILS # (AUTO) 0.3 10^3/uL (0.0-0.7); EOSINOPHILS % (AUTO) 3.4 %; HCT - HEMATOCRIT 38.5 % (37.0-47.0); HGB - HEMOGLOBIN 11.4 g/dL (12.0-16.0); LYMPHOCYTES # (AUTO) 1.7 10^3/uL (1.5-3.5); LYMPHOCYTES % (AUTO) 20.8 %; MEAN CORPUSCULAR HEMOGLOBIN 25.5 pg (27.0-31.0); MEAN CORPUSCULAR HGB CONC 29.6 g/dL (32.0-36.0); MEAN CORPUSCULAR VOLUME 86.1 fL (81.0-99.0); MEAN PLATELET VOLUME 10.7 fL (7.9-10.8); MONOCYTES # (AUTO) 0.7 10^3/uL (0.0-1.0); MONOCYTES % (AUTO) 8.4 %; NEUTROPHILS # (AUTO) 5.5 10^3/uL (1.5-6.6); PLT - PLATELET COUNT 369 10^3/uL (130-450); RED BLOOD COUNT 4.47 10^6/uL (4.20-5.40); RED CELL DISTRIBUTION WIDTH 15.2 % (12.0-15.0); WHITE BLOOD COUNT 8.3 x10^3/uL (4.8-10.8)
[2023-03-20 18:31] LABS: BUN - BLOOD UREA NITROGEN 17 mg/dL (6-20); CALCIUM 9.7 mg/dL (8.5-10.3); CARBON DIOXIDE - CO2 30 mmol/L (21-32); CHLORIDE 100 mmol/L (101-111); CHOL/HDL RATIO 2.7 (<4.4); CHOLESTEROL 187 mg/dL; CREATININE 0.7 mg/dL (0.6-1.3); GFR - MDRD 87 (>89); GLUCOSE 92 mg/dL (74-104); HDL CHOLESTEROL 69 mg/dL; LDL CHOLESTEROL,CALCULATED 94 mg/dL; LDL/HDL RATIO 1.4 (<4.4); POTASSIUM 4.2 mmol/L (3.5-4.5); SODIUM 139 mmol/L (135-145); TRIGLYCERIDES 118 mg/dL (48-352); VLDL CHOLESTEROL 24 mg/dL
[2023-03-21 06:46] LABS: ESTIMATED AVERAGE GLUCOSE 103 mg/dL (70-100); HEMOGLOBIN A1c% 5.2 % (4.27-6.07)
== END 2023-03-20 14:32 | disposition home or self-care (01) ==
LOC: LAB.N 14:31
PROVIDERS: ATTEND Nurse Practitioner Family
DX: E78.5 Hyperlipidemia, unspecified (principal); R73.03 Prediabetes; E87.6 Hypokalemia; D50.9 Iron deficiency anemia, unspecified; R53.83 Other fatigue
CPT/HCPCS: 36415; 80048; 80061; 83036; 83721; 85025

== ENCOUNTER 2023-05-13 18:01 | Outpatient (CLI) | payer MEDICAID ==
[2023-05-13 21:19] LABS: BASOPHILS # (AUTO) 0.1 10^3/uL (0.0-0.1); EOSINOPHILS # (AUTO) 0.3 10^3/uL (0.0-0.7); EOSINOPHILS % (AUTO) 3.5 %; HCT - HEMATOCRIT 43.5 % (37.0-47.0); HGB - HEMOGLOBIN 13.7 g/dL (12.0-16.0); LYMPHOCYTES # (AUTO) 1.9 10^3/uL (1.5-3.5); MEAN CORPUSCULAR HGB CONC 31.5 g/dL (32.0-36.0); MEAN CORPUSCULAR VOLUME 85.8 fL (81.0-99.0); MEAN PLATELET VOLUME 10.4 fL (7.9-10.8); MONOCYTES # (AUTO) 0.6 10^3/uL (0.0-1.0); MONOCYTES % (AUTO) 7.3 %; NEUTROPHILS # (AUTO) 5.1 10^3/uL (1.5-6.6); NEUTROPHILS % (AUTO) 63.8 %; PLT - PLATELET COUNT 311 10^3/uL (130-450); RED BLOOD COUNT 5.07 10^6/uL (4.20-5.40); RED CELL DISTRIBUTION WIDTH 16.6 % (12.0-15.0)
[2023-05-13 22:05] LABS: THYROID STIMULATING HORMONE 11.54 uIU/mL (0.34-5.60)
[2023-05-13 22:09] LABS: FERRITIN 10.3 ng/mL (11.0-306.8)
== END 2023-05-13 18:02 | disposition home or self-care (01) ==
LOC: LAB.N 18:01
PROVIDERS: ATTEND Nurse Practitioner Family
DX: D50.9 Iron deficiency anemia, unspecified (principal); E03.9 Hypothyroidism, unspecified
CPT/HCPCS: 36415; 82728; 83540; 84439; 84443; 84466; 85025

== ENCOUNTER 2023-05-19 15:47 | Outpatient (CLI) | payer MEDICAID ==
--- NOTE | 2023-05-21 09:20 | Mammography Report ---
BILATERAL DIGITAL SCREENING MAMMOGRAM 3D/2D: 05/19/2023 CLINICAL: Routine screening. Family history of breast cancer. Comparison is made to exams dated: 05/29/2020 mammogram, 12/01/2017 mammogram, 01/29/2010 mammogram, 1 ultrasound biopsy, 01/18/2010 ultrasound, and 01/18/2010 mammogram - [facility]. There are scattered areas of fibroglandular density in both breasts (category b / 25%-50% glandular t issue). No significant masses, calcifications, or other findings are seen in either breast. There has been no significant interval change. IMPRESSION: NEGATIVE There is no mammographic evidence of malignancy. A 1 year screening mammogram is recommended. Based on the Tyrer Cuzick model (a risk assessment model) the patient's lifetime risk is 12.0% and he r 10 year risk is 3.9%. According to the ACR, ACS, and NCCN guidelines, an annual breast MRI exam magy ng with mammogram is recommended if the patient's lifetime risk is 20% or greater. This exam was interpreted at Station ID: [id number]. NOTE: For mammograms, a report in lay terms will be sent to the patient. Approximately 15% of breast malignancies will not be visualized mammographically. In the management of a palpable breast mass, a negative mammogram must not discourage biopsy of a clinically suspicious lesion. Electronically Signed By: Jaelyn fam/benjamín:05/20/2023 10:20:54 letter sent: No_Letter ACR BI-RADS Category 1: Negative 3341F PARENCHYMAL PATTERN: (A) - The breast(s) demonstrate(s) scattered fibroglandular densities. BI-RADS CATEGORY: (1) - 1 Mammogram [id number] 1 year screening LATERALITY: (B)
== END 2023-05-19 15:48 | disposition home or self-care (01) ==
LOC: DI.N 15:47
DX: Z12.31 Encounter for screening mammogram for malignant neoplasm of breast (principal); Z80.3 Family history of malignant neoplasm of breast; R92.323 Mammographic fibroglandular density, bilateral breasts

== ENCOUNTER 2023-07-14 14:59 | Outpatient (CLI) | payer MEDICAID ==
--- NOTE | 2023-07-14 22:06 | Ultrasound Report ---
PROCEDURE: Soft Tissue Head or Neck INDICATIONS: ENLARGED THYROID TECHNIQUE: Real-time scanning was performed of the thyroid gland, with image documentation. COMPARISON: None FINDINGS: Right: Thyroid lobe measures 4 x 1.3 x 1.3 cm, and is heterogeneous in echotexture. Left: Thyroid lobe measures 3.6 x 1.4 x 1.4 cm, and is heterogeneous in echotexture. Isthmus: 0.3 cm thick. No discrete thyroid nodules. No hyperemia. IMPRESSION: Prominent heterogeneous thyroid gland. No discrete thyroid nodules. ACR TI-RADS definitions and recommendations: TI-RADS 1 (benign): 0 points. FNA not needed. TI-RADS 2 (not suspicious): 2 points. FNA not needed. TI-RADS 3 (mildly suspicious): 3 points. "FNA if 2.5 cm or larger, follow up if 1.5 cm or larger (at 1, 3, and 5 years). TI-RADS 4 (moderately suspicious): 4-6 points. "FNA if 1.5 cm or larger, follow up if 1 cm or larger (at 1, 2, 3, and 5 years). TI-RADS 5 (highly suspicious): 7 points or more. "FNA if 1 cm or larger, follow up if 0.5 cm or larger (every year for 5 years). Reviewed by: Jovany Colon MD on 07/14/2023 10:04 PM PDT Approved by: Jovany Colon MD on 07/14/2023 10:04 PM PDT Station ID: [id number]
== END 2023-07-14 15:00 | disposition home or self-care (01) ==
LOC: DI 14:59
PROVIDERS: ATTEND Nurse Practitioner Family
DX: E04.9 Nontoxic goiter, unspecified (principal); E03.9 Hypothyroidism, unspecified; I10 Essential (primary) hypertension

== ENCOUNTER 2023-07-14 15:16 | Emergency (ER) | payer MEDICAID ==
[2023-07-14 15:24] VITALS: BP 179/88; O2SAT 97
--- NOTE | 2023-07-14 15:35 | ED Physician Documentation ---
PD HPI MAJOR BURN - Stated complaint Stated Complaint: LT HAND WOUND - Chief complaint Chief Complaint: Burn - History obtained from History obtained from: Patient (58-year-old [id number] woman burned her left hand with hot wax last night. She is up-to-date on tetanus. 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 - Present Medications Home Medications: Ambulatory Orders Medication Instructions Recorded Confirmed Albuterol Sulfate [Proair 1 - 2 puffs INH Q4HR PRN 07/14/23 07/14/23 Digihaler] Bacitracin Zinc Oint 1 applic TOP BID #1 each 07/14/23 DULoxetine [Cymbalta] 30 mg PO DAILY 07/14/23 07/14/23 Levothyroxine Sodium [Synthroid] 150 mcg PO DAILY 07/14/23 07/14/23 Losartan Potassium 100 mg PO DAILY 07/14/23 07/14/23 Rosuvastatin Calcium [Crestor] 10 mg PO HS 07/14/23 07/14/23 - Allergies Allergies/Adverse Reactions: Allergies Allergy/AdvReac Type Severity Reaction Status Date / Time codeine Allergy Unknown Verified 07/14/23 15:21 - Social History Does the pt smoke?: Yes Smoking Status: Current every day smoker Does the pt drink ETOH?: Yes Does the pt have substance abuse?: No - Immunizations Immunizations are current?: Yes - POLST Patient has POLST: No PD ED PE NORMAL - Vitals Vital signs reviewed: Yes - General General: Alert and oriented X 3, No acute distress - Extremities Extremities: Other (On the dorsum of the area of the first metacarpal of the left hand there is a area of second-degree burn with blister that is intact measuring 0.2% TBSA with another 0.4% TBSA first-degree burn surrounding that.) - Neuro Neuro: Alert and oriented X 3 Results - Vitals Vitals: Vital Signs - 24 hr 07/14/23 15:17 Temperature 36.1 C L Heart Rate 95 Respiratory 16 Rate Blood Pressure 179/88 H O2 Saturation 97 Oxygen O2 Source Room air PD Medical Decision Making - ED course ED course: Burn care: Left hand was prepped with Hibiclens and then the second-degree blister was sharply removed and dressed with Xeroform and tube gauze. Departure - Departure Disposition: 01 Home, Self Care Clinical Impression: Second degree burn of left hand Qualifiers: Encounter type: initial encounter Burn of hand location: dorsum Qualified Code(s): T23.262A - Burn of second degree of back of left hand, initial encounter Condition: Good Record reviewed to determine appropriate education?: Yes Instructions: ED Burn D 2nd Prescriptions: Bacitracin Zinc Oint 1 applic TOP BID #1 each Comments: You can remove the dressing once a day and wash briefly with soap and water, then apply the bacitracin ointment as prescribed and a nonstick dressing and a loose wrap. Follow-up with your doctor in about a week for wound check. Return for new or worsening symptoms.
== END 2023-07-14 15:48 | disposition home or self-care (01) ==
LOC: ED 15:16
DX: T23.262A Burn of second degree of back of left hand, initial encounter (principal); T31.0 Burns involving less than 10% of body surface; X12.XXXA Contact with other hot fluids, initial encounter; E78.00 Pure hypercholesterolemia, unspecified; E03.9 Hypothyroidism, unspecified; F17.200 Nicotine dependence, unspecified, uncomplicated; Z79.899 Other long term (current) drug therapy
CPT/HCPCS: 99282; 99283

== ENCOUNTER 2023-08-04 15:57 | Outpatient (CLI) | payer MEDICAID ==
[2023-08-04 20:45] LABS: BASOPHILS # (AUTO) 0.1 10^3/uL (0.0-0.1); BASOPHILS % (AUTO) 0.8 %; EOSINOPHILS # (AUTO) 0.1 10^3/uL (0.0-0.7); HCT - HEMATOCRIT 46.1 % (37.0-47.0); HGB - HEMOGLOBIN 15.3 g/dL (12.0-16.0); LYMPHOCYTES # (AUTO) 1.7 10^3/uL (1.5-3.5); LYMPHOCYTES % (AUTO) 26.8 %; MEAN CORPUSCULAR HEMOGLOBIN 30.5 pg (27.0-31.0); MEAN CORPUSCULAR HGB CONC 33.2 g/dL (32.0-36.0); MEAN PLATELET VOLUME 10.4 fL (7.9-10.8); MONOCYTES # (AUTO) 0.5 10^3/uL (0.0-1.0); MONOCYTES % (AUTO) 8.5 %; NEUTROPHILS # (AUTO) 3.8 10^3/uL (1.5-6.6); NEUTROPHILS % (AUTO) 61.6 %; PLT - PLATELET COUNT 285 10^3/uL (130-450); RED BLOOD COUNT 5.01 10^6/uL (4.20-5.40); WHITE BLOOD COUNT 6.2 x10^3/uL (4.8-10.8)
[2023-08-04 21:09] LABS: % IRON SATURATION 21 % (20-50); ALBUMIN 4.7 g/dL (3.2-5.5); ALBUMIN/GLOBULIN RATIO 1.5 (1.0-2.2); ALKALINE PHOSPHATASE 87 IU/L (42-121); ALT ALANINE AMINOTRANSFERASE 21 IU/L (10-60); AST ASPARTATE AMINOTRANSFERASE 18 IU/L (10-42); BILIRUBIN,TOTAL 0.5 mg/dL (0.2-1.0); BUN - BLOOD UREA NITROGEN 11 mg/dL (6-20); CALCIUM 10.5 mg/dL (8.5-10.3); CARBON DIOXIDE - CO2 25 mmol/L (21-32); CHLORIDE 105 mmol/L (101-111); CREATININE 0.7 mg/dL (0.6-1.3); CRP - C-REACTIVE PROTEIN < 0.5 mg/dL (<0.5); GFR - MDRD 87 (>89); GLUCOSE 108 mg/dL (74-104); IRON 105 ug/dL (50-212); POTASSIUM 3.7 mmol/L (3.5-4.5); SODIUM 140 mmol/L (135-145); TOTAL IRON BINDING CAPACITY 496 ug/dL (250-450); TOTAL PROTEIN 7.8 g/dL (6.4-8.9); TRANSFERRIN 354 mg/dL (203-362)
[2023-08-04 21:19] LABS: THYROID STIMULATING HORMONE 1.41 uIU/mL (0.34-5.60)
[2023-08-04 21:27] LABS: RHEUMATOID FACTOR NEGATIVE (Negative)
== END 2023-08-04 15:58 | disposition home or self-care (01) ==
LOC: LAB.N 15:57
PROVIDERS: ATTEND Nurse Practitioner Family
DX: I10 Essential (primary) hypertension (principal); E03.9 Hypothyroidism, unspecified; D50.9 Iron deficiency anemia, unspecified; E53.8 Deficiency of other specified B group vitamins; M79.10 Myalgia, unspecified site; M25.50 Pain in unspecified joint
CPT/HCPCS: 36415; 80053; 82607; 82728; 82746; 83540; 84443; 84466; 85025; 85651; 86038; 86140; 86430

== ENCOUNTER 2023-09-04 14:52 | Outpatient (CLI) | payer MEDICAID ==
--- NOTE | 2023-09-04 15:33 | Sleep Patient Instructions ---
Sleep Center Visit Summary - Patient Visit Information Reason for Visit: Initial consult for evaluation of sleep disordered breathing and other sleep issues. - Patient Instructions Additional Instructions: You will be completing a sleep study, either an in-lab polysomnography (PSG) or home sleep study (HST). You will follow-up in the sleep care office after the sleep study is completed to hear the results and talk about therapy, if needed. You will be called by our office staff to schedule this appointment, but you may contact us with any questions. - Clinic Information Contact: [facility] [address] [place] [id number] [email or web address] T: [phone]
[2023-09-04 15:36] VITALS: BP 152/88; O2SAT 97
--- NOTE | 2023-09-04 15:36 | SLEEP CARE CONSULTATION ---
Information from patient questionnaire entered by Kandy Ruiz. I have reviewed and concur with the information entered by Kandy Ruiz. This document represents the service I personally performed and the decisions made by me, Rose Mary Brand ARNP. History of Present Illness Service Date and Time: 09/04/2023 1452 Reason for Visit: New patient Chief Complaint: reports: Unrefreshed sleep, Excessive daytime sleepiness, Fatigue, Frequent awakenings at night Date of Onset: YRS Usual bedtime: 3887-3100 Time it takes to fall asleep: 60MIN OR SO Observed to quit breathing while asleep: No Sleeps alone due to snoring: No Number of times waking at night: I DONT KNOW Reasons for waking at night: reports: Bathroom, Other (UNKNOWN) Toss, Turn, or Twitch while sleeping: Yes Recalls having dreams: Yes Usually gets out of bed at: 0700 Feels refreshed in the morning: No Morning headache: No Sleepy or fatigued during the day: Yes Ever fallen asleep while driving: No Takes day naps: Yes Dreams during day naps: Yes Prior sleep studies: No Additional HPI information: I had the pleasure of seeing GUILLERMO MURO today regarding the possibility of her having a sleep disorder. Her current complaints are excessive daytime sleepiness, fatigue, frequent night awakenings and unrefreshed sleep. She says she used to work nights and sleep during the day. She continues to stay up all night and sleep during the day even though she is not working now. The patient tells me that she normally goes to bed around 10-11 pm (going into room but not sleeping for hours later), and it takes her approximately 60 minutes or so to fall asleep. She does not known if she snores at night. She has not been observed to stop breathing in her sleep. She can recall waking up on the average of 1-2 times during the night. Most of the time she wakes up because of bathroom and unknown reasons. She has not awakened for her own snoring, choking, and having to gasp for air. There is a lot of tossing and turning in her sleep. Generally she can recall having dreams. She usually wakes up at 2 PM anddoes not feel refreshed. She usually does not have a morning headache. During the day she complains of feeling sleepy and fatigued. She has never fallen asleep while driving nor has any accident due to sleepiness. She reports having impaired concentration during the day. - Parasomnia Symptoms Ever been unable to move upon waking from sleep: Yes Walks in sleep: No Ever acted out dreams in sleep: Yes Ever felt weak in the knees when startled or emotional: No Bothered by creepy, crawly, restless sensations in legs: No Problems with memory or concentration: Yes Subjective Initial [place] Sleepiness Scale score: 12 (09/04/23) Past Medical History Past Medical History: reports: Hypertension, Hypothyroidism, Fibromyalgia, Anemia, Anxiety, Depression, Other (high cholesterol) Social History The patient's occupation is a [employer]. Patient is Legally and lives in . Have you smoked in the past 12 months: Yes Cigarettes per day (20/pack): 20 Years of smokin Smoking Pack Years: 36.0 Alcohol use: Yes Alcohol amount and frequency: 2-2X A WEEK Caffeine use: No Family History Family history of sleep disordered breathing: Yes Family Hx Sleep Apnea: Father: Snoring Allergies and Home Medications Known drug allergies: Yes ( LISTED ) Drug allergies reviewed: Yes Home medication list reviewed: Yes (as listed but she is not really taking any) Allergy and home medication list: Allergies codeine Allergy (Verified 09/02/23 09:20) Unknown Home Medications Medication Instructions Recorded Confirmed Last Taken Type Albuterol Sulfate [Proair 1 - 2 puffs INH Q4HR PRN 07/14/23 09/04/23 Unknown History Digihaler] Bacitracin Zinc Oint 1 applic TOP BID #1 each 07/14/23 09/04/23 Unknown Rx DULoxetine [Cymbalta] 30 mg PO DAILY 07/14/23 09/04/23 Unknown History Levothyroxine Sodium [Synthroid] 150 mcg PO DAILY 07/14/23 09/04/23 Unknown History Losartan Potassium 100 mg PO DAILY 07/14/23 09/04/23 Unknown History Rosuvastatin Calcium [Crestor] 10 mg PO HS 07/14/23 09/04/23 Unknown History Review of Systems Weight gain over past 5 years: 50 Cardiovascular: reports: high blood pressure Respiratory: reports: shortness of breath Gastrointestinal: reports: nausea, vomitting, diarrhea Psychiatric: reports: anxiety, depression Ear/Nose/Throat: reports: nasal congestion, dry mouth/throat, wisdom teeth removed. denies: tonsillectomy Endocrine: reports: thyroid disease, sluggishness, too hot or cold, excessive thirst, unexplained weakness Musculoskeletal: reports: joint pain, neck pain, back pain, muscle pain or cramping, mobility problems Physical Exam Vital signs obtained and entered by: KANDY العراقي MA Blood Pressure: 152/88 (RIGHT ARM) Cuff size: long Heart Rate: 83 O2 Saturation: 97 Height: 5 ft 6 in Weight: 215 lb 3.2 oz Body Mass Index: 34.7 BMI Classification: Obese Neck circumference: 16.25 Nostrils: patent to airflow Mouth and throat: narrow oropharynx Soft palate: long Hard palate: normal Uvula: normal Uvula visualization: 25% Mallampati Class III Tongue: enlarged in size with teeth weinstein on lateral edges Tonsils: small Neck: normal w/o lymphadenopathy or thyromegaly Heart: regular rate and rhythm Lungs: clear bilaterally Impression and Plan 1. Suspected Obstructive Sleep Apnea-Hypopnea Syndrome, as suggested by a history of frequent awakening during the night, unrefreshed sleep, cognitive impairment, and excessive daytime sleepiness. Narrow oropharynx and obesity are common predisposing factors for obstructive sleep apnea-hypopnea syndrome. I recommend proceeding to polysomnography to confirm the diagnosis and to assess severity. If the patient has significant sleep disordered breathing, a manual CPAP titration study will also be performed to find the optimal treatment pressure. I informed the patient of what the sleep studies involve and after some discussion, obtained agreement to proceed. The pathophysiology of obstruct robb sleep apnea-hypopnea syndrome was discussed with the patient and health risks of cardiovascular and cerebrovascular disease if not treated. Risks of drowsy driving discussed in detail and patient advised to avoid long distance driving and to kiln puller at the first sign of drowsiness. Patient agreed to plan. * Schedule polysomnography +- manual CPAP titration study and return in 1-2 weeks after the study to discuss result and initiate therapy. * Avoid long distance driving or driving when feeling sleepy. * Avoid alcohol, sedative and muscle relaxant around bedtime. * Attempt to lose weight. * Review instructions provided by trained office staff on how to prepare for the sleep study. * Return for follow-up after sleep study completed. Counseling Topics: Weight loss health impact Plan: PSG/HST and follow up Visit Type: In Office Time Spent with Patient (minutes): 30 Provider Statement: I spent 100% of the Face to Face Visit with the patient with greater than 50% spent counseling the patient and coordination of care.
== END 2023-09-04 14:53 | disposition home or self-care (01) ==
LOC: SC 14:52
PROVIDERS: ATTEND Nurse Practitioner Family
DX: G47.8 Other sleep disorders (principal); G47.10 Hypersomnia, unspecified; R53.83 Other fatigue; F17.210 Nicotine dependence, cigarettes, uncomplicated; G47.33 Obstructive sleep apnea (adult) (pediatric); Z68.34 Body mass index [BMI] 34.0-34.9, adult; I10 Essential (primary) hypertension; F32.A Depression, unspecified
CPT/HCPCS: 99203; 99212

== ENCOUNTER 2023-09-18 10:31 | Outpatient (CLI) | payer MEDICAID | END 2023-09-18 10:32 | disposition home or self-care (01) | LOC: SC 10:31 | PROVIDERS: ATTEND Nurse Practitioner Family | DX: Z53.9 Procedure and treatment not carried out, unspecified reason (principal) ==